=== PATIENT | female | born 1975 | race Two or more races ===

== ENCOUNTER 2018-04-25 20:35 | Emergency (ER) | payer MEDICAID ==
[~2018-04-25] VITALS: Ht 160 cm; Wt 79.4 kg
[~2018-04-25 20:35] MED LIST: ALPR0.25 PO; IBUP200C5 PO
--- NOTE | 2018-04-25 20:52 | NUR ---
PT BIBSELF FROM HOME C/C INTERMITTENT PRESSURE LIKE SUBSTERNAL CHEST PAIN NONRADIATING X1 WEEK. -N/V/D. -COUGH. AFEBRILE. HX OF ANXIETY. DENIES SOB. PT AOX4. NAD NOTED. RESP EVEN AND UNLABORED. PT ON MONITOR IN BED 10. WILL CONTINUE TO MONITOR.
--- NOTE | 2018-04-25 21:10 | NUR ---
RADIOLOGY AT BEDSIDE FOR XRAY
--- NOTE | 2018-04-25 21:12 | NUR ---
TECH AT BEDSIDE FOR EKG
--- NOTE | 2018-04-25 21:14 | NUR ---
BLOOD DRAWN AND GIVEN TO LAB
[2018-04-25 21:17] LABS: BASOPHILS % (AUTO) 0.5 % (0.0-2.0); EOSINOPHILS % (AUTO) 1.2 % (0.0-6.0); HEMATOCRIT 39 % (33-45); HEMOGLOBIN 12.8 g/dL (11.5-14.8); LYMPHOCYTES # (AUTO) 2.1 /CMM (0.8-4.8); LYMPHOCYTES % (AUTO) 23.4 % (20.0-44.0); MEAN CORPUSCULAR HGB CONC 33 g/dl (31.0-36.0); MEAN CORPUSCULAR VOLUME 84 fL (82-100); MONOCYTES # (AUTO) 0.6 /CMM (0.1-1.30); MONOCYTES % (AUTO) 6.9 % (2.0-12.0); PLATELET COUNT (AUTO) 289 /CMM (150-450); RED BLOOD CELL COUNT(AUTO) 4.57 MIL/uL (4.0-5.2); WHITE BLOOD COUNT (AUTO) 8.9 K/uL (4.3-11.0)
[2018-04-25 21:23] LABS: CALCIUM, SERUM 9.5 mg/dL (8.5-10.1); CARBON DIOXIDE 31 mmol/L (21-32); CHLORIDE 103 mmol/L (98-107); GLUCOSE 98 mg/dL (74-106); POTASSIUM 3.8 mmol/L (3.5-5.1); SODIUM SERUM 139 mmol/L (136-145); UREA NITROGEN, BLOOD 18 mg/dL (7-18)
[2018-04-25 21:41] LABS: ALANINE AMINOTRANSFERASE 32 U/L (12-78); ALBUMIN 3.7 g/dL (3.4-5.0); ALKALINE PHOSPHATASE 85 U/L (46-116); ASPARTATE AMINOTRANSFERASE 22 U/L (15-37); BILIRUBIN,DIRECT 0.1 mg/dL (0.0-0.2); BILIRUBIN,TOTAL 0.2 mg/dL (0.2-1.0); TOTAL PROTEIN, SERUM 7.6 g/dL (6.4-8.2)
[2018-04-25] MEDS ORDERED: ACETAMINOPHEN 650 MG/20.3 ML UDC ONE (22:27)
[2018-04-25] MEDS ORDERED: ACETAMINOPHEN 650 MG/20.3 ML UDC PO ONE (22:30)
[2018-04-25 23:01] VITALS: BP 117/70
--- NOTE | 2018-04-26 01:09 | NUR ---
IV removed. Catheter intact and site benign. Pressure and 4x4 applied to site. No bleeding noted.Patient discharged to home in stable condition. Written and verbal after care instructions given. Patient verbalizes understanding of instruction. PT AMBULATORY WITH STEADY GAIT.
== END 2018-04-26 01:12 | disposition home or self-care (01) ==
LOC: ER 20:44
DX: R07.89 Other chest pain (principal); F41.9 Anxiety disorder, unspecified; F32.9 Major depressive disorder, single episode, unspecified; Z98.890 Other specified postprocedural states
CPT/HCPCS: 36415 ×2; 71045; 80048; 80076; 84484 ×2; 85025; 85730; 93005 ×2; 99284; A4606

== ENCOUNTER 2022-01-17 15:56 | Emergency (ER) | payer MEDICAID ==
[~2022-01-17] VITALS: Ht 162.6 cm; Wt 81.6 kg
--- NOTE | 2022-01-17 17:10 | NUR ---
DR GARCIA AT BEDSIDE
[2022-01-17 17:37] LABS: BASOPHILS % (AUTO) 0.2 % (0.0-2.0); EOSINOPHILS % (AUTO) 0.3 % (0.0-6.0); HEMATOCRIT 39 % (33-45); HEMOGLOBIN 12.5 g/dL (11.5-14.8); LYMPHOCYTES # (AUTO) 1.5 K/uL (0.8-4.8); LYMPHOCYTES % (AUTO) 11.1 % (20.0-44.0); MEAN CORPUSCULAR HGB CONC 32 g/dl (31.0-36.0); MEAN CORPUSCULAR VOLUME 83 fL (82-100); MONOCYTES # (AUTO) 0.8 K/uL (0.1-1.30); MONOCYTES % (AUTO) 5.6 % (2.0-12.0); NEUTROPHILS # (AUTO) 11.4 K/uL (1.8-8.9); NEUTROPHILS % (AUTO) 82.8 % (43.0-81.0); PLATELET COUNT (AUTO) 302 K/uL (150-450); RED BLOOD CELL COUNT(AUTO) 4.69 MIL/uL (4.0-5.2); WHITE BLOOD COUNT (AUTO) 13.8 K/uL (4.3-11.0)
[2022-01-17] MEDS ORDERED: KETOROLAC TROMETHAMINE 15 MG/ML VIAL ONE (17:53)
[2022-01-17 17:55] LABS: CALCIUM, SERUM 8.8 mg/dL (8.5-10.1); CREATININE 1.1 mg/dL (0.6-1.3); POTASSIUM 3.5 mmol/L (3.5-5.1)
--- NOTE | 2022-01-17 17:58 | NUR ---
ANNIKA GANT AT BEDSIDE
[2022-01-17] MEDS ORDERED: KETOROLAC TROMETHAMINE INJ 30 MG/ML VIAL IV ONE (18:00)
[2022-01-17] MEDS ORDERED: KETOROLAC TROMETHAMINE INJ 30 MG/ML VIAL IM ONE (18:00)
[2022-01-17 18:01] LABS: ALBUMIN 3.9 g/dL (3.4-5.0); BILIRUBIN,DIRECT 0.1 mg/dL (0.0-0.2); BILIRUBIN,TOTAL 0.5 mg/dL (0.2-1.0)
[2022-01-17] MEDS ORDERED: IBUP-1955 PO (18:17)
[2022-01-17] MEDS ORDERED: ONDA4TAB5 PO (18:17)
--- NOTE | 2022-01-17 19:05 | NUR ---
@1618 BIBSELF FROM HOME C/O ABDOMINAL PAIN AND NAUSEA SINCE LAST NIGHT, SHE THINKS SHE HAS A RUPTURED OVARIAN CYST AGAIN. PT A/OX4. TOLERATING R/A WELL WITH NO RESP DISTRESS. SAFETY MEASURES IN PLACE
[2022-01-17] MEDS ORDERED: HYDROCODONE/APAP 5/325MG TABLET ONE (19:28)
[2022-01-17] MEDS ORDERED: HYDROCODONE/APAP 5/325MG TABLET PO ONE (19:30)
[2022-01-17 20:00] VITALS: BP 121/70
--- NOTE | 2022-01-17 20:01 | NUR ---
urine sent to lab
[2022-01-17 20:29] LABS: BILIRUBIN,URINE NEGATIVE (NEGATIVE); COLOR,URINE YELLOW (YELLOW); LEUKOCYTE ESTERASE ,URINE NEGATIVE (NEGATIVE); NITRITE, URINE NEGATIVE (NEGATIVE); PROTEIN,URINE NEGATIVE (NEGATIVE); UGLUCOSE NEGATIVE (NEGATIVE); UROBILINOGEN,URINE 0.2 EU/dL (0.2)
--- NOTE | 2022-01-17 20:57 | NUR ---
Patient discharged to home in stable condition. Written and verbal after care instructions given. Patient verbalizes understanding of instruction.
== END 2022-01-17 20:57 | disposition home or self-care (01) ==
LOC: ER 15:56
DX: N83.201 Unspecified ovarian cyst, right side (principal); R11.0 Nausea; R10.30 Lower abdominal pain, unspecified; F41.9 Anxiety disorder, unspecified; Z90.49 Acquired absence of other specified parts of digestive tract
CPT/HCPCS: 99284; 96374; 76856; 85025; 80048; 83690; 80076; 84703; 81003; 36415; J1885